=== PATIENT | male | born 1980 | race Caucasian/White ===

== ENCOUNTER 2018-02-24 01:00 | Emergency (ER) | payer SELFPAY ==
[2018-02-24] MEDS ORDERED: NACL 0.9% 1000 ML 1,000 ML IV ONE (01:42)
[2018-02-24] MEDS ORDERED: LEVSIN SL SL ONE (01:42)
[2018-02-24] MEDS ORDERED: ZOFRAN IV STA (01:42)
[2018-02-24 01:43] LABS: Basophils # (Auto) 0.1 K/mm3 (0.0-0.1); Basophils % (Auto) 0.8 % (0.0-1.8); Eosinophils # (Auto) 0.3 K/mm3 (0.0-0.4); Eosinophils % (Auto) 3.1 % (0.0-4.3); Hematocrit 42.3 % (35.5-45.6); Hemoglobin 14.9 gm/dl (11.8-15.2); Lymphocytes # (Auto) 3.8 K/mm3 (1.2-5.4); Lymphocytes % (Auto) 40.2 % (13.4-35.0); Mean Corpuscular HGB Conc 35 % (32-34); Mean Corpuscular Volume 86 fl (84-94); Monocytes # (Auto) 0.7 K/mm3 (0.0-0.8); Monocytes % (Auto) 7.3 % (0.0-7.3); Platelet Count 238 K/mm3 (140-440); Red Blood Count 4.91 M/mm3 (3.65-5.03); Red Cell Distribution Width 13.7 % (13.2-15.2)
[2018-02-24] MEDS ORDERED: ALUM-MAG HYDROX-SIMETH 200-200-20MG/5ML PO STA (01:43)
[2018-02-24] MEDS ORDERED: LIDOCAINE VISCOUS 2% PO ONE (01:44)
[2018-02-24] MEDS ORDERED: BANOPHEN PO ONE (01:44)
--- NOTE | 2018-02-24 01:46 | Emergency Department Report ---
<ROBERTO SANTOYO - Last Filed: 02/24/18 01:46> ED Abdominal Pain HPI - General Chief Complaint: Abdominal Pain Stated Complaint: STOMACH PAIN Time Seen by Provider: 02/24/18 01:39 Source: patient Mode of arrival: Ambulatory Limitations: No Limitations, Language Barrier - History of Present Illness Initial Comments: 12-year-old male was eating at [employer] when he developed sharp, sudden epigastric pain that continued to remain for about the last 2 hours. Nausea is appreciated, but no vomiting. Pain is sharp in nature and and intensified. No bloating. No hemoptysis, hematemesis, no hematochezia. No dysuria. Denies any trauma. MD Complaint: abdominal pain -: Sudden, days(s) (1) Location: epigastric Radiation: epigastric Severity: moderate Quality: stabbing, sharp, burning Consistency: constant Improves With: nothing Worsens With: nothing Associated Symptoms: nausea. denies: diarrhea, constipation, dysuria, hematemesis, hematuria, anorexia, syncope - Related Data Allergies Allergy/AdvReac Type Severity Reaction Status Date / Time No Known Allergies Allergy Unverified 02/24/18 01:18 ED Review of Systems Constitutional: denies: chills, fever Eyes: denies: eye pain, eye discharge, vision change ENT: denies: ear pain, throat pain Respiratory: denies: cough, shortness of breath, wheezing Cardiovascular: denies: chest pain, palpitations Endocrine: no symptoms reported Gastrointestinal: abdominal pain. denies: nausea, diarrhea Genitourinary: denies: urgency, dysuria Musculoskeletal: denies: back pain, joint swelling, arthralgia Skin: denies: rash, lesions Neurological: denies: headache, weakness, paresthesias Psychiatric: denies: anxiety, depression Hematological/Lymphatic: denies: easy bleeding, easy bruising ED Past Medical Hx - Past Medical History Previous Medical History?: No - Surgical History Past Surgical History?: No - Social History Smoking Status: Former Smoker Substance Use Type: None ED Physical Exam - General Limitations: No Limitations, Language Barrier General appearance: alert, in no apparent distress - Head Head exam: Present: atraumatic, normocephalic - Eye Eye exam: Present: normal appearance - ENT ENT exam: Present: mucous membranes moist - Neck Neck exam: Present: normal inspection - Respiratory Respiratory exam: Present: normal lung sounds bilaterally. Absent: respiratory distress, wheezes, rales - Cardiovascular Cardiovascular Exam: Present: regular rate, normal rhythm. Absent: systolic murmur, diastolic murmur, rubs, gallop - GI/Abdominal GI/Abdominal exam: Present: soft, tenderness, normal bowel sounds, other (no Johnson sign, no tenderness at McBurney's, no Rovsing, no goiter, no Norman). Absent: guarding, rebound, hyperactive bowel sounds, hypoactive bowel sounds, organomegaly - Rectal Rectal exam: Present: deferred - Extremities Exam Extremities exam: Present: normal inspection - Back Exam Back exam: Present: normal inspection - Neurological Exam Neurological exam: Present: alert, oriented X3 - Psychiatric Psychiatric exam: Present: normal affect, normal mood - Skin Skin exam: Present: warm, dry, intact, normal color. Absent: rash ED Medical Decision Making - Lab Data Result diagrams: 02/24/18 01:29 ED Disposition Clinical Impression: Abdominal spasms Disposition: - TO HOME OR SELFCARE Condition: Stable Instructions: Acute Abdominal Pain (ED) Additional Instructions: Please take medication as prescribed. If her symptoms persist or gets worse please follow up her primary care provider. Prescriptions: Famotidine [Pepcid] 40 mg PO DAILY #14 tablet Hyoscyamine Subl [Levsin Sl 0.125 TAB] 0.125 mg SL Q6HR PRN #20 tab PRN Reason: abdominal cramps and spasms Ondansetron [Zofran ODT TAB] 8 mg PO Q12HR #14 tab.rapdis Referrals: PRIMARY CARE, [Primary Care Provider] - 3-5 Days [facility] [Provider Group] - 3-5 Days Forms: Work/School Release Form(ED) <RICARDO GUZMAN - Last Filed: 02/24/18 06:18> ED Review of Systems ROS: Stated complaint: STOMACH PAIN Other details as noted in HPI ED Course Vital Signs 02/24/18 01:18 Temperature 98.9 F Pulse Rate 66 Respiratory 24 Rate Blood Pressure 172/103 O2 Sat by Pulse 100 Oximetry ED Medical Decision Making - Lab Data Result diagrams: 02/24/18 01:29 02/24/18 01:29 - Radiology Data Radiology results: report reviewed FINAL REPORT EXAM: CT ABDOMEN PELVIS W CON HISTORY: upper abdomen pain TECHNIQUE: CT images are acquired through the Abdomen and Pelvis arterial and delayed phases following intravenous administration of contrast. Transaxial, coronal and sagittal reformations are provided. PRIORS: None FINDINGS: Partially visualized intrathoracic contents are unremarkable. The liver, gallbladder, pancreas, spleen, and adrenal glands are unremarkable. Kidneys show no worrisome lesions, hydronephrosis, or calculi. Urinary bladder is unremarkable. Small and large bowel are normal in caliber. Appendix is normal. No free air, free fluid, or lymphadenopathy identified. Aorta is normal in course and caliber. Superficial soft tissues are remarkable for a small fat containing left inguinal hernia versus spermatic cord lipoma. No acute or aggressive appearing skeletal findings. IMPRESSION: No acute findings in the abdomen or pelvis. Transcribed By: MB Dictated By: IVELISSE CENTENO MD Electronically Authenticated By: IVELISSE CENTENO MD Signed Date/Time: 02/24/184 DD/ 5 TD/TT: 02/24/18505 Critical care attestation.: If time is entered above; I have spent that time in minutes in the direct care of this critically ill patient, excluding procedure time. ED Disposition Is pt being admited?: No Does the pt Need Aspirin: No
[2018-02-24 02:07] LABS: Alanine Aminotransferase 30 units/L (7-56); Albumin 4.6 g/dL (3.9-5); BUN/Creatinine Ratio 15; Blood Urea Nitrogen 12 mg/dL (9-20); Calcium 9.3 mg/dL (8.4-10.2); Hemolysis Index 13
[2018-02-24 03:08] LABS: Bilirubin,Urine NEG (Negative); Blood,Urine NEG (Negative); Color,Urine Yellow (Yellow); Mucus,Urine 3+ /HPF; RBC,Urine < 1.0 /HPF (0.0-6.0); Urobilinogen,Urine < 2.0 mg/dL (<2.0); WBC,Urine < 1.0 /HPF (0.0-6.0)
--- NOTE | 2018-02-24 05:04 | Cat Scan Report ---
FINAL REPORT EXAM: CT ABDOMEN PELVIS W CON HISTORY: upper abdomen pain TECHNIQUE: CT images are acquired through the Abdomen and Pelvis arterial and delayed phases followi ng intravenous administration of contrast. Transaxial, coronal and sagittal reformations are provided . PRIORS: None FINDINGS: Partially visualized intrathoracic contents are unremarkable. The liver, gallbladder, pancreas, spleen, and adrenal glands are unremarkable. Kidneys show no worrisome lesions, hydronephrosis, or calculi. Urinary bladder is unremarkable. Small and large bowel are normal in caliber. Appendix is normal. No free air, free fluid, or lymphade nopathy identified. Aorta is normal in course and caliber. Superficial soft tissues are remarkable for a small fat containing left inguinal hernia versus sperma tic cord lipoma. No acute or aggressive appearing skeletal findings. IMPRESSION: No acute findings in the abdomen or pelvis.
[2018-02-24 06:31] VITALS: BP 111/81
== END 2018-02-24 06:32 | disposition home or self-care (01) ==
LOC: ED 01:00
DX: K22.4 Dyskinesia of esophagus (principal); R25.2 Cramp and spasm
CPT/HCPCS: 36415; 74177; 80053; 81001; 83690; 85025; 96374; 99284; J2405; J7030; Q9967; Q0163

== ENCOUNTER 2019-11-10 17:22 | Emergency (ER) | payer SELFPAY ==
[2019-11-10 17:41] VITALS: BP 194/112
--- NOTE | 2019-11-10 19:41 | Emergency Department Report ---
ED ENT HPI - General Chief complaint: Dental/Oral Stated complaint: TOOTH PAIN Time Seen by Provider: 11/10/19 19:00 Source: patient Mode of arrival: Ambulatory Limitations: No Limitations - History of Present Illness Initial comments: male presents emerged department with friend complaining of a few day history of left upper dental pain worse with chewing and eating. No fever chills or sweats no odynophagia or did or dysphagia. No hemoptysis no hematemesis no hematochezia. Reports no rashes no known dental trauma. Location: tooth # Severity: mild, moderate Quality: aching, dull Consistency: constant Improves with: none Worsens with: eating Context- Dental: history of dental caries Associated Symptoms: toothache. denies: cough, gum swelling, pain with swallowing, sore throat, tinnitus, hearing loss, discharge from ear, rhinorrhea - Related Data Previous Rx's Medication Instructions Recorded Last Taken Type Famotidine [Pepcid] 40 mg PO DAILY #14 tablet 02/24/18 Unknown Rx Hyoscyamine Subl [Levsin Sl 0.125 0.125 mg SL Q6HR PRN #20 tab 02/24/18 Unknown Rx TAB] Ondansetron [Zofran ODT TAB] 8 mg PO Q12HR #14 tab.rapdis 02/24/18 Unknown Rx Amoxicillin [Amoxicillin TAB] 875 mg PO BID #20 tablet 11/10/19 Unknown Rx Chlorhexidine Mouthwash [Peridex] 15 ml MM BID #1 bottle 11/10/19 Unknown Rx Lidocaine Viscous 2% 5 ml MM Q3H PRN #120 udc 11/10/19 Unknown Rx Allergies Allergy/AdvReac Type Severity Reaction Status Date / Time No Known Allergies Allergy Unverified 02/24/18 01:18 ED Dental HPI - General Chief complaint: Dental/Oral Stated complaint: TOOTH PAIN Time Seen by Provider: 11/10/19 19:00 Source: patient Mode of arrival: Ambulatory Limitations: No Limitations - Related Data Previous Rx's Medication Instructions Recorded Last Taken Type Famotidine [Pepcid] 40 mg PO DAILY #14 tablet 02/24/18 Unknown Rx Hyoscyamine Subl [Levsin Sl 0.125 0.125 mg SL Q6HR PRN #20 tab 02/24/18 Unknown Rx TAB] Ondansetron [Zofran ODT TAB] 8 mg PO Q12HR #14 tab.rapdis 02/24/18 Unknown Rx Amoxicillin [Amoxicillin TAB] 875 mg PO BID #20 tablet 11/10/19 Unknown Rx Chlorhexidine Mouthwash [Peridex] 15 ml MM BID #1 bottle 11/10/19 Unknown Rx Lidocaine Viscous 2% 5 ml MM Q3H PRN #120 udc 11/10/19 Unknown Rx Allergies Allergy/AdvReac Type Severity Reaction Status Date / Time No Known Allergies Allergy Unverified 02/24/18 01:18 ED Review of Systems ROS: Stated complaint: TOOTH PAIN Other details as noted in HPI Comment: All other systems reviewed and negative ED Past Medical Hx - Past Medical History Previous Medical History?: No Hx Diabetes: Yes (borderline) - Surgical History Past Surgical History?: No - Social History Smoking Status: Never Smoker Substance Use Type: None - Medications Home Medications: Home Medications Medication Instructions Recorded Confirmed Last Taken Type Famotidine [Pepcid] 40 mg PO DAILY #14 tablet 02/24/18 Unknown Rx Hyoscyamine Subl [Levsin Sl 0.125 0.125 mg SL Q6HR PRN #20 tab 02/24/18 Unknown Rx TAB] Ondansetron [Zofran ODT TAB] 8 mg PO Q12HR #14 tab.rapdis 02/24/18 Unknown Rx Amoxicillin [Amoxicillin TAB] 875 mg PO BID #20 tablet 11/10/19 Unknown Rx Chlorhexidine Mouthwash [Peridex] 15 ml MM BID #1 bottle 11/10/19 Unknown Rx Lidocaine Viscous 2% 5 ml MM Q3H PRN #120 udc 11/10/19 Unknown Rx ED Physical Exam - General Limitations: No Limitations General appearance: alert, in no apparent distress - Head Head exam: Present: atraumatic, normocephalic - Eye Eye exam: Present: normal appearance, PERRL, EOMI Pupils: Present: normal accommodation - ENT ENT exam: Present: mucous membranes moist, other (The areas of dental erosion and caries to the lower lower dentition most of the upper dentition show blunting suggestive of bruxism. Tooth #12 and 13 has had dental caries and erosion and an adjacent gingival swelling and with palpation palpated what feels like an abscess formation.) - Neck Neck exam: Present: normal inspection - Respiratory Respiratory exam: Present: normal lung sounds bilaterally. Absent: respiratory distress - Cardiovascular Cardiovascular Exam: Present: regular rate, normal rhythm. Absent: systolic murmur, diastolic murmur, rubs, gallop - GI/Abdominal GI/Abdominal exam: Present: soft, normal bowel sounds - Rectal Rectal exam: Present: deferred - Extremities Exam Extremities exam: Present: normal inspection - Back Exam Back exam: Present: normal inspection - Neurological Exam Neurological exam: Present: alert, oriented X3 - Psychiatric Psychiatric exam: Present: normal affect, normal mood - Skin Skin exam: Present: warm, dry, intact, normal color. Absent: rash ED Course Vital Signs 11/10/19 17:40 Temperature 98.5 F Pulse Rate 78 Respiratory 18 Rate Blood Pressure 194/112 O2 Sat by Pulse 97 Oximetry Critical care attestation.: If time is entered above; I have spent that time in minutes in the direct care of this critically ill patient, excluding procedure time. ED Disposition Clinical Impression: Infected dental caries, Dental caries Disposition: - TO HOME OR SELFCARE Is pt being admited?: No Does the pt Need Aspirin: No Condition: Stable Instructions: Dental Caries (ED), Dental Abscess (ED), Toothache (ED), Acute dental trauma (ED) Prescriptions: Amoxicillin [Amoxicillin TAB] 875 mg PO BID #20 tablet Lidocaine Viscous 2% 5 ml MM Q3H PRN #120 udc PRN Reason: Pain, Moderate (4-6) Chlorhexidine Mouthwash [Peridex] 15 ml MM BID #1 bottle Referrals: PRIMARY CARE, [Primary Care Provider] - 3-5 Days [facility] [Outside] - 3-5 Days Print Language: MALAYSIAN
== END 2019-11-10 19:47 | disposition home or self-care (01) ==
LOC: ED 17:22
DX: K02.9 Dental caries, unspecified (principal); Z79.2 Long term (current) use of antibiotics; Z79.899 Other long term (current) drug therapy
CPT/HCPCS: 99282